=== PATIENT | female | born 1965 | race African-American/Black ===

== ENCOUNTER 2023-03-02 20:25 | Emergency (ER) | payer SELFPAY ==
[~2023-03-02] VITALS: Ht 152.4 cm; Wt 73.0 kg
[2023-03-02 21:17] VITALS: BP 139/103; O2SAT 100
[2023-03-02 21:41] LABS: CLARITY URINE CLEAR (CLEAR); COLOR URINE YELLOW (YELLOW); GLUCOSE URINE NEGATIVE (NEGATIVE); KETONES URINE NEGATIVE (NEGATIVE); LEUKOCYTE ESTERASE URINE NEGATIVE (NEGATIVE); NITRITE URINE NEGATIVE (NEGATIVE); OCCULT BLOOD URINE 1+ (NEGATIVE); PROTEIN URINE NEGATIVE (NEGATIVE); SPECIFIC GRAVITY URINE 1.032 (1.005-1.030)
[2023-03-02 21:56] LABS: BACTERIA URINE TRACE
[2023-03-02 21:58] LABS: SQUAMOUS EPITHELIAL CELL URINE FEW /lpf (RARE/1+); WBC URINE 0-2 /hpf (0-2)
[2023-03-02 23:05] LABS: BASOPHILS % 0.7 % (0.0-2.0); HEMATOCRIT. 41.8 % (36.0-48.0); LYMPHOCYTES % 31.6 % (20.0-50.0); MEAN CORPUSCULAR HEMOGLOBIN 29.2 pg (28.0-32.0); MEAN CORPUSCULAR HGB CONC 33.5 g/dL (31.0-37.0); MEAN CORPUSCULAR VOLUME 87.2 fL (81.0-99.0); MEAN PLATELET VOLUME 6.7 fl (7.4-10.4); MONOCYTES % 9.3 % (2.0-8.0); NEUTROPHILS % 57.4 % (40.0-76.0); PLATELET 391 x1000/uL (130-400); RED CELL DISTRIBUTION WIDTH 13.1 % (11.6-14.6); WHITE BLOOD COUNT 10.9 x1000/uL (4.5-11.0)
[2023-03-02 23:18] LABS: ALANINE AMINOTRANSFERASE 33 IU/L (10-49); ALBUMIN 4.5 g/dL (3.2-4.8); ASPARTATE AMINOTRANSFERASE 18 IU/L (<34); BILIRUBIN TOTAL 0.2 mg/dL (0.1-1.0); CALCIUM 9.6 mg/dL (8.7-10.4); CARBON DIOXIDE 27 mEq/L (21-32); CHLORIDE 107 mEq/L (98-107); CREATININE 0.8 mg/dL (0.6-1.0); GLUCOSE 237 mg/dL (70-105); POTASSIUM 3.5 mEq/L (3.5-5.1); PROTEIN TOTAL 7.3 g/dL (6.0-8.3); SODIUM 142 mEq/L (136-145); UREA NITROGEN BLOOD 11 mg/dL (9-23)
[2023-03-03 05:03] VITALS: PULSE 77; RESP 20; TEMP 98.2
== END 2023-03-03 03:04 | disposition home or self-care (01) ==
LOC: ER 20:25
DX: S01.111A Laceration without foreign body of right eyelid and periocular area, initial encounter (principal); F17.200 Nicotine dependence, unspecified, uncomplicated; J44.9 Chronic obstructive pulmonary disease, unspecified; E11.9 Type 2 diabetes mellitus without complications; R51.9 Headache, unspecified; V99.XXXA Unspecified transport accident, initial encounter; Y93.89 Activity, other specified; Y92.89 Other specified places as the place of occurrence of the external cause; Y99.8 Other external cause status
CPT/HCPCS: 80053; 81003; 81025; 85025; 36415; 12011; 99284; 70450; 70486; Z7610

== ENCOUNTER 2024-01-10 17:30 | Emergency (ER) | payer SELFPAY ==
[~2024-01-10] VITALS: Ht 165.1 cm; Wt 54.0 kg
[2024-01-10 17:32] VITALS: BP 136/103; PULSE 81; RESP 15; TEMP 98.7; O2SAT 100
[2024-01-10] MEDS ORDERED: CLONIDINE 0.1MG TABLET PO PRN (19:00)
== END 2024-01-10 20:53 | disposition left against medical advice (07) ==
LOC: ER 17:30
DX: R55 Syncope and collapse (principal); R51.9 Headache, unspecified; R00.2 Palpitations; J44.9 Chronic obstructive pulmonary disease, unspecified; E11.9 Type 2 diabetes mellitus without complications
CPT/HCPCS: 99283

== ENCOUNTER 2024-03-20 16:45 | Emergency (ER) | payer SELFPAY ==
[~2024-03-20] VITALS: Ht 152.4 cm; Wt 68.0 kg
[2024-03-20 17:05] VITALS: O2SAT 99
[2024-03-20] MEDS ORDERED: LIDO700A15 TP (17:45)
[2024-03-20] MEDS ORDERED: ACET-2708 MT (17:45)
[2024-03-20] MEDS ORDERED: AMOX50SU15 MT (17:45)
[2024-03-20] MEDS ORDERED: TETANUS, DIPHTHERIA, PERTUSSIS VAC/PF 0.5ML (>10YR OLD) IM ONE (17:45)
[2024-03-20] MEDS: ACETAMINOPHEN 325MG TABLET PO ONE (19:02)
[2024-03-20] MEDS: KETOROLAC 30MG/ML VIAL IM ONE (19:03)
[2024-03-20] MEDS ORDERED: BO1 TP (19:45)
[2024-03-20] MEDS: TETANUS, DIPHTHERIA, PERTUSSIS VAC/PF 0.5ML (>10YR OLD) IM ONE (20:32)
[2024-03-20 20:35] VITALS: BP 140/64; PULSE 87; RESP 16; TEMP 36.83628; O2SAT 99
== END 2024-03-20 20:36 | disposition home or self-care (01) ==
LOC: ER 16:45
DX: S41.132A Puncture wound without foreign body of left upper arm, initial encounter (principal); W54.0XXA Bitten by dog, initial encounter; Y93.89 Activity, other specified; Y92.89 Other specified places as the place of occurrence of the external cause; Y99.8 Other external cause status
CPT/HCPCS: 81025; 73030; 73090; 90715; 90471; 96372; 99284; J1885; Z7610; A4565